=== PATIENT | female | born 1950 | race Caucasian/White ===

== ENCOUNTER 2025-04-04 07:39 | Day surgery (SDC) | payer MEDICARE, SELFPAY ==
[2025-04-04] VITALS (14 sets, daily range): BP systolic 79–151; BP diastolic 48–140; PULSE 40–60; RESP 16–17; TEMP 36.3–36.9; O2SAT 93–97; BMI 23.4
[2025-04-04] MEDS: LACTATED RINGERS 1000 ML 1,000 ML 100 ML IV ×2 (08:05→11:42)
[2025-04-04] MEDS: SODIUM CHLORIDE 0.9 % (FLUSH) 10 ML SYRINGE IVF (08:18)
--- NOTE | 2025-04-04 10:01 | SUR.OPER ---
PATIENT QUESTIONS ANSWERED SATISFACTORILY PREOPERATIVELY.? PATIENT BROUGHT TO OR #2 PER CART.? Patient positioned supine on OR #2 bed.? The perioperative?team supported arms bilaterally on arm boards.? Final approval of positioning by surgeon.? CONTINUOUS IRRIGATION OF THE RIGHT KNEE DURING THE PROCEDURE WITH NACL.
[2025-04-04] MEDS: BUPIVACAINE 0.25% 30 ML INJECTION (11:21)
--- NOTE | 2025-04-04 11:37 | P.ANES_ITS ---
Anesthesia Charges Start Date/Time Anesthesia Start Date: 04/04/25 Anesthesia Start Time: 10:32 Stop Date/Time Anesthesia Stop Date: 04/04/25 Anesthesia Stop Time: 11:35 Summary Extremes of Age - Over 70 or under 1: SENIOR SOLUTIONS WORKFLOW CONSULTANT Coding CPT Codes CPT Codes: ANESTH KNEE JOINT SURGERY - 84386 ([id number]) QK - HEALTH CARE LEGAL ASSISTANT 2-4 CNCRNT ANES PROC, P2 - PATIENT W/MILD SYST DISEASE Additional Codes: Summary - Extremes of Age - Over 70 or under 1: SENIOR SOLUTIONS WORKFLOW CONSULTANT ([id number])
--- NOTE | 2025-04-04 11:37 | W.ANESCHARGE ---
Anesthesia Charges Start Date/Time Anesthesia Start Date: 04/04/25 Anesthesia Start Time: 10:32 Stop Date/Time Anesthesia Stop Date: 04/04/25 Anesthesia Stop Time: 11:35 Summary Extremes of Age - Over 70 or under 1: ORDER FULFILLMENT SPECIALIST Coding CPT Codes CPT Codes: ANESTH KNEE JOINT SURGERY - 78765 ([id number]) QK - POLICY CANCELLATION CLERK 2-4 CNCRNT ANES PROC, P2 - PATIENT W/MILD SYST DISEASE Additional Codes: Summary - Extremes of Age - Over 70 or under 1: ORDER FULFILLMENT SPECIALIST ([id number])
--- NOTE | 2025-04-04 11:40 | P.ORPRC_ITS ---
Procedure Note Date of procedure: 04/04/25 Procedure: PREOPERATIVE DIAGNOSIS: Right knee medial and lateral meniscus tear POSTOPERATIVE DIAGNOSIS: Right knee medial and lateral meniscus tear NAME OF OPERATION: Right knee arthroscopic partial partial lateral meniscectomy SURGEON: Jonny Cagle MD INSTRUCTOR BUS TROLLEY AND TAXI: Rica Dietrich PA-C ANESTHESIA: Spinal ESTIMATED BLOOD LOSS: 0 mL COMPLICATIONS: None SPECIMENS: None DRAINS: None PREOPERATIVE ANTIBIOTICS: Ancef 1 gram INDICATIONS: The patient is a 74-year-old with a history of right knee pain. MRI scan is consistent with a medial and lateral meniscus tear. Despite appropriate nonoperative management, including activity modification, antiinflammatories, ouhx-aol-xbzacry pain medication, bracing, physical therapy, and injections they continue to have pain and disability. Operative intervention was offered. The risks, benefits and expected outcomes were discussed in detail. These included but were not limited to: Infection, bleeding, injury to blood vessel or nerve, venous thromboembolism. All questions were answered to their satisfaction. PROCEDURE: Spinal anesthesia was administered. The patient was placed supine on the operating room table. The right lower extremity was prepped and draped in the usual sterile fashion. The limb was exsanguinated with the Farhan bandage. The pneumatic tourniquet was inflated to 300 mmHg. A standard anterolateral portal was established. The arthroscope was introduced. The working portal was established anteromedially. Diagnostic arthroscopy was performed with findings as follows: The suprapatellar pouch is normal. Articular surface on the patella shows diffuse grade 2/3 change. Articular surface on the trochlea is normal. The medial gutter is normal. The medial compartment shows diffuse grade 2/3 change on the medial femoral condyle, grade 2 change on the medial tibial plateau. The medial meniscus shows age-appropriate degenerative fraying of the leading edge of the midbody and posterior horn. The notch shows the ACL to be intact. The lateral compartment shows a large area of grade 3/4 change on the central weight-bearing portion of the lateral femoral condyle, grade 2 change on the lateral tibial plateau. The lateral meniscus shows a complex degenerative tear of the posterior horn, into the midbody. This consists of undersurface horizontal cleavage tearing and some radial tearing at the junction of the midbody and anterior horn. The lateral gutter is normal. The leading edge of the midbody and posterior horn of the medial meniscus was debrided with the shaver. The posterior horn and midbody, into the anterior horn of the lateral meniscus was debrided with the shaver through both portals, taken to a stable base. Unstable chondral flaps on the lateral femoral condyle were debrided with the shaver. Arthroscopic instruments were removed, the portal sites were Steri-Stripped closed, the knee was infiltrated with 30 mL of 0.25% Marcaine without epinephrine. A dry dressing was applied, the tourniquet was released. Sponge and needle counts were correct x 2. The patient tolerated the procedure well. There were no apparent complications. They were carefully transferred to the hospital bed and taken to the post anesthesia care unit in satisfactory condition. PLAN: The patient will be discharged to home. They may weightbear as tolerates. Range of motion will be unrestricted. They will follow up in the o ffice next week for a wound check.
--- NOTE | 2025-04-04 12:17 | W.ANESCHARGE ---
Anesthesia Charges Start Date/Time Anesthesia Start Date: 04/04/25 Anesthesia Start Time: 10:32 Stop Date/Time Anesthesia Stop Date: 04/04/25 Anesthesia Stop Time: 11:35 Summary Extremes of Age - Over 70 or under 1: MDA Coding CPT Codes CPT Codes: ANESTH KNEE JOINT SURGERY - 89859 ([id number]) QK - NUMERICAL CONTROL NESTING OPERATOR 2-4 CNCRNT ANES PROC, QX - DELIVERY ROOM CLERK SVC W/ MD MED DIRECTION, P2 - PATIENT W/MILD SYST DISEASE Additional Codes: Summary - Extremes of Age - Over 70 or under 1: MDA ([id number])
== END 2025-04-04 13:20 | disposition home or self-care (01) ==
LOC: OR 07:40
PROVIDERS: PCP Physician Assistant Medical; Visit Provider Orthopaedic Surgery
PROC: (CPT 29882; principal; 2025-04-04 09:45)
DX: M23.251 Derangement of posterior horn of lateral meniscus due to old tear or injury, right knee (principal); M23.221 Derangement of posterior horn of medial meniscus due to old tear or injury, right knee
CPT/HCPCS: 29880; 01400; 99100; J0665; J0690; J1100; J2250; J2371; J2405; J2704; J3010; J7120

== ENCOUNTER 2025-04-08 11:27 | Emergency (ER) | payer MEDICARE, SELFPAY ==
--- OUTSIDE RECORDS SUMMARY | 2022-02-19 05:26 | XMS_ITS | Continuity of Care Document ---
Author Organization [facility] Address [address] [address] [place] [address] Phone Care Team Providers Care Electric Motor Repairman Name Role Phone Castro Peña MD, Loy Unavailable Unavailabl e Medications Medication Instructions Dosage Effective Dates (start - stop) Status Comments MiralaxBisacodylMagCit Colon Prep Use as directed - Active Advance Directives Directive Yes / No Effective Date File Name No Information Encounters Encounter Description Practice Location Reason(s) For Visit Diagnoses Date Provider Providers Copied on Encounter [facility], [address] [address], [place], [place], [id number], tel:[phone] [facility] No Information Castro Granado. [address] [place] [address], [id number], [place]. tel:[phone] [facility], [address] [address], [place], [place], [id number], tel:[phone] [facility] No Information Link MD Ramirez. [address] [place] [address], [id number], [place]. tel:[phone] Referring Provider: Kim GRACE, [address] [place] [address], [id number]. tel:[phone] Family History Family Member Type Diagnosis Age At Onset No Information Payers Payer name Insurance type Covered democrat ID Authoriza tion(s) No Information Social History Type Description Quantity Date Captured Comments Sex Female Smoking Status No Information Chief Complaint And Reason For Visit No Information Reason For Referral Reason For Referral No Information History Of Present Illness Encounter Date Complaint History Of Prese nt Illness No Information Functional Status Date Functional Assessmen t No Information Instructions Date Instruction Additional Infor mation No Information Assessments Type Assessment Date No Information Patient Care Teams Name Effective Dates (start - stop) Status Members No Information
--- OUTSIDE RECORDS SUMMARY | 2022-02-19 05:26 | XMS_ITS | Continuity of Care Document ---
Author Organization [facility] Address [address] [address] [place] [address] Phone Care Team Providers Care Gaming Director Name Role Phone Castro Peña MD, Loy Unavailable Unavailabl e Medications Medication Instructions Dosage Effective Dates (start - stop) Status Comments MiralaxBisacodylMagCit Colon Prep Use as directed - Active Advance Directives Directive Yes / No Effective Date File Name No Information Encounters Encounter Description Practice Location Reason(s) For Visit Diagnoses Date Provider Providers Copied on Encounter [facility], [address] [address], [place], [place], [id number], tel:[phone] [facility] No Information Castro Granado. [address] [place] [address], [id number], [place]. tel:[phone] [facility], [address] [address], [place], [place], [id number], tel:[phone] [facility] No Information Link MD Ramirez. [address] [place] [address], [id number], [place]. tel:[phone] Referring Provider: Kim GRACE, [address] [place] [address], [address]. tel:[phone] Family History Family Member Type Diagnosis Age At Onset No Information Payers Payer name Insurance type Covered constitution party ID Authoriza tion(s) No Information Social History [...]
[2025-04-08] VITALS (16 sets, daily range): BP systolic 146–183; BP diastolic 69–111; PULSE 46–68; RESP 16; TEMP 36.3; O2SAT 94–99; BMI 22.8
--- OUTSIDE RECORDS SUMMARY | 2025-04-08 11:29 | XMS_ITS | Clinical Summary ---
Author Organization [facility] Address [address] [place] [address] Care Team Providers Care Supervisor Fruit Grading Name Role Phone Kim Zhao Primary Care Provider Allergies Active Allergy Reactions Criticality Noted Date Comments Celecoxib Diarrhea,Other - Describe In Comment Field 07/06/2023 heartburn Vancomycin Itching 01/08/2013 Severe itching and redness Medications lisinopriL (PRINIVIL; ZESTRIL) 10 mg tabletIndications: Hypertension Take 1 Tablet (10 mg) by mouth once daily. 90 Tablet 3 4 Active simvastatin (ZOCOR) 40 mg tabletIndications: Hyperlipidemia, unspecified hyperlipidemia type Take 1 Tablet (40 mg) by mouth once daily in the evening. 90 Tablet 3 4 Active famotidine (PEPCID) 20 mg tabletIndications: Gastroesophageal reflux disease, unspecified whether esophagitis present Take 1 Tablet (20 mg) by mouth two times daily. 180 Tablet 3 4 Active cholecalciferol (VITAMIN D) 2,000 unit capsule Take 1 capsule by mouth once weekly. 0 1 03/20/20 25 Discontin ued(*Jayshree ent states no longer taking) Active Problems Problem Noted Date Diagnosed Date Calculus of gallbladder with acute on chronic cholecystitis without obstruction 05/23/2017 Varicose veins of lower extr emities with other complications 11/27/2013 Overview (03/04/2014): 12/2013 Venous insufficiency US - The RIGHT great saphenous vein is locally incompetent in the proximal and mid thigh. Saphenofemoral junction normal. The great saphenous vein measures 3-5 mm in the thigh, 2 mm in the calf. The RIGHT small saphenous vein is normal the small saphenous vein measures 3 mm. The LEFT great saphenous vein is probably locally incompetent in the mid thigh with poor quality or indeterminate Doppler waveform.. The great saphenous vein measures 3-5 mm in the thigh 9 mm saphenofemoral junction and 2-3 mm in the calf. The LEFT small saphenous vein is incompetent then normal caliber but with wall thickening suggesting a prior phlebitis. The small saphenous vein measures 3 mm. No incompetent perforating veins seen. No abnormal accessory veins. Pelvic abscess 06/14/2011 Uterine prolapse without mention of vaginal wall prolapse 05/19/2011 Cystocele, midline 05/19/2011 Screening mammogram 04/02/2009 Overview (04/02/2009): 02/12/08 Negative Smoker 04/02/2009 Hypertension 04/02/2009 Osteoarthritis of finger(s) 04/02/2009 Hyperlipidemia Pap smear Overview (04/02/2009): 12/13 Normal Resolved Problems Problem Noted Date Diagnosed Date Resolved Date Septic embolism 06/14/2011 06/09/2021 Encounters Date Type Department Care Team Description 03/20/2025 3:00 PM CDT Office Visit [facility] [address] [place] [address] Kim Zhao PA Preoperative Exam (R knee) 03/20/2025 Travel 03/06/2025 11:50 AM CDT Ancillary Procedure [facility] [address] [facility] [address] [place] [address] 03/06/2025 11:20 AM CDT Office Visit [facility] [address] [facility] [address] [place] [address] Reed Paris PA Knee Pain/problem (right) 03/06/2025 Travel from Last 3 Months Immunizations Immunization Administration Dates Next Due COVID-19 VACCINE COMIRNATY ( [employer]-Musistic 30MCG/0.3ML) 12YO+ PFS 04/08/2024 Pneumococcal Poly,23-Valent (Pneumovax) 11/26/19 18 Pneumococcal conj 13-Valent (Prevnar 13) 017 RSV, Recombinant ADJ Reconst ituted (Arexvy 120MCG/0.5mL) 04/22/2023 Td (Age >=7 Years) 01/19/2022,04/19/2000 Tdap 04/08/2010 Zoster (Shingrix-RZV, recombinant) 06/10/2022, Zoster (Zostavax-ZVL, live) 11/28/2013 Family History Medical History Relation Name Comments Diabetes Maternal Grandmother Other Mother demnetia Cancer-breast Other Mat. Grandmother's Siste Cancer-colon Paternal Grandfather Other Sister 3 COPD Cancer-ovarian No Family History Relation Name Status Comments Brother Alive Father (Age 81) alcoholism Maternal Grandmother Mother old age Other Mat. Grandmother's Siste Alive Paternal Grandfather Sister 1 esophageal canc er Sister 2 Alive Sister 3 Alive Social History Tobacco Use Types Packs/Day Years Used Date Smoking Tobacco: Every Day Cigarettes 1.5 50 Smokeless Tobacco: Never Tobacco Cessation:Ready to Q uit: No; Counseling Given: Yes Alcohol Use Standard Drinks/Week Comments No 0 (1 standard drink = 0.6 oz pur e alcohol) PHQ-2 Answer Date Recorded PHQ-2 TOTAL SCORE 0 06/18/2024 Social Connections Answer Date Recorded Do you often feel lonely or isolated from those around you? 0 06/13/2024 Financial Resource Strain Answer Date R ecorded Difficulty of Paying Living Expenses 3 05/03/2024 Difficulty of Paying Living Expenses Not on file 05/03/2024 Food Insecurity Answer Date Recorded Do you worry your food will run out before you are able to buy more? 1 06/13/2024 Transportation Needs Answer Date Record ed Does lack of transportation keep you from medica l appointments? 1 06/13/2024 Does lack of transportation keep you from work, meetings or getting things that you need? 1 06/13/2024 Housing Stability Answer Date Recorded What is your housing situation today? 1 06/13/2024 Utilities Answer Date Recorded Do you have trouble paying f or utilities (for example, heat, electricity, water, phone)? 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 Not on file Not on file Obstetrics History Para Term AB IAB SAB Ectopic Multiple Livin g Live Births 3 3 3 0 0 0 0 0 0 3 3 Date Outcome GA Total Labor Labor/2nd/3rd Weight Sex Type Anes PTL Tammi A1 A5 Name Clin Term Vag Living Term Vag Living Term Vag Living Last Filed Vital Signs Vital Sign Reading Time Taken Comments Blood Pressure 150/70 03/20/2025 3:22 PM CDT Pulse 66 03/20/2025 3:00 PM CDT Temperature 37.1 C (98.7 F) 03/06/2025 11:25 AM CDT Respiratory Rate 16 03/06/2025 11:25 AM CDT Oxygen Saturation 98% 03/06/2025 11:25 AM CDT Inhaled Oxygen Concentration - - Weight 62.1 kg (137 lb) 03/20/2025 3:00 PM CDT Height 165 cm (5' 4.96) 03/20/2025 3:00 PM CDT Body Mass Index 22.83 03/20/2025 3:00 PM CDT Plan of Treatment Upcoming Encounters Date Type Department Care Team (Late st Contact Info) Description 06/21/2025 9:10 AM PROCUREMENT ASSISTANT Office Visit [facility] [address] [place] [address] Kim Zhao PA [address] [place] [address] 06/21/2025 11:00 AM PROCUREMENT ASSISTANT Ancillary Procedure [facility] [address] [place] [address] Health Maintenance Due Date Last Done Comments Low Dose CT (for lung CA) age 50-80 06/12/2012 06/12/2011 Fecal testing non-DNA (FIT,FOBT,iFOBT) for age 45-75 06/16/2024 06/16/2023, 01/22/2022, 04/18/2017, Additional history exists Influenza Vaccine (#1) 2025 Mammogram for age 45-75 06/18/2025 06/18/20 24, 06/15/2023, 06/15/2022, Additional history exists Depression screening for age 12+ 06/19/2025 06/19/2024, 06/18/2024, 06/15/2023, Additional history exists Medicare Wellness for age 65+ 06/19/2025 06/18/2024, 06/15/2023, 06/15/2022, Additional history exists BMI (ht and wt on same day) for age 18+ 03/20/2026 03/20/2025, 06/18/2024, 06/15/2023, Additional history exists Lipids for age 45-75 06/18/2029 06/18/2024, 06/15/2023, 06/15/2022, Additional history exists Tetanus booster 01/20/2032 01/19/2022, 09/0 08/2009, 04/19/2000 Hepatitis C screening for age 18-79 Completed 11/28/2013 DEXA/DXA scan for age 65+ Completed 08/26/2016 Pneumococcal series for age 50+ Completed 11/25/2017, 08/20/2016 Zoster (shingles) series for age 50+ Completed 06/10/2022, 04/09/2022, 11/28/2013 RSV vaccine for adults or Completed 04/22/2023 COVID-19 vaccine series Completed 10/25/19, 04/08/2024, 05/23/2023, Additional history exists Hepatitis B series for 19+ Aged Out N o longer eligible based on patient's age to complete this topic Procedures Procedure Name Priority Date/Time Associated Diagnosis Comments POTASSIUM Routine 03/20/2025 3:29 PM CDT Hypertension XR KNEE WB 2 VIEWS BILATERAL AND 1 VIEW RIGHT STAT 03/06/2025 11:57 AM CDT Acute pain of right knee LIPID PANEL W REFLEX MEASURED LDL Routine 06/18/2024 10:23 AM PROCUREMENT ASSISTANT Screening cholesterol level XR MAMMO BRIELLE BILAT SCREEN Routine 06/18/2024 9:10 AM PROCUREMENT ASSISTANT Visit for screening mammogram OCCULT BLOOD IFOBT STOOL Routine 06/16/2023 3:29 PM PROCUREMENT ASSISTANT Screening for colon cancer XR DXA BONE DENSITY 2 SITES AXIAL Routine 08/26/2016 11:20 AM PROCUREMENT ASSISTANT Asymptomatic menopausal state Osteopenia ANTI HCV Routine 11/28/2013 2:06 PM CDT Need for hepatitis C screening test CT CHEST WO STAT 06/12/2011 10:19 PM CDT from Last 3 Months or Most Recently Relevant to Health Maintenance Results * POTASSIUM (03/20/2025 3:29 PM CDT) POTASSIUM 3.9 3.5 - 5.3 mmol/L [facility] Blood BLOOD SPECIMEN / Unknown 03/20/2025 3:29 PM CDT 03/20/2025 3:29 PM CDT Kim GRACE CHEMISTRY Final R esult [employer] [facility] [address] [place] [address], [facility] [address] [place] [address] * XR KNEE WB 2 VIEWS BILATERAL AND 1 VIEW RIGHT (03/06/2025 11:57 AM CDT) Anatomical Region Laterality Modality KNEES, KNEE R Digital Radiogra phy 03/06/2025 12:1 4 PM CDT Narrative 03/06/2025 12:14 PM CDT For Patients: As a result of the Century Cures Act, medical imaging exams and procedure reports are released immediately into your electronic medical record. You may view this report before your referring provider. If you have questions, please contact your health care provider. Indication: Acute pain of right knee Technique: Three views of the right knee and two views of the left knee Comparison: None Findings/Impression: No acute fracture or malalignment. Questionable trace right suprapatellar knee joint effusion. Mild tricompartmental osteoarthritic degenerative changes bilaterally. No suspicious osseous lesions. Patellar enthesophytes. Vascular calcifications. Dictated by Timo Chaudhary MD @ 03/06/2025 12:14:02 PM (Electronically Signed) Procedure Note Timo Chaudhary MD - 03/06/2025 For Patients: As a result of the Cures Act, medical imagingexams and procedure reports are released immediately into your electronicmedical record. You may view this report before your referring provider.If you have questions, please contact your health care provider. Indication: Acute pain of right knee Technique: Three views of the right knee and two views of the left knee Comparison: None Findings/Impression: No acute fracture or malalignment. Questionable trace right suprapatellarknee joint effusion. Mild tricompartmental osteoarthritic degenerative changes bilaterally. Nosuspicious osseous lesions. Patellar enthesophytes. Vascular calcifications. Dictated by Timo Chaudhary MD @ 03/06/2025 12:14:02 PM (Electronically Signed) us Reed [facility] Final Resul t * (ABNORMAL) LIPID PANEL W REFLEX MEASURED LDL (06/18/2024 10:23 AM PROCUREMENT ASSISTANT) CHOLESTEROL, TOTAL 154 <200 mg/dL [facility] HDL CHOLESTEROL 45(L) > OR = 50 mg/dL [facility] TRIGLYCERIDES 128 <150 mg/dL [facility] LDL-CHOLESTEROL 87 mg/dL (calc) [facility] Comment: Reference range: <100 Desirable range <100 mg/dL for primary prevention; <70 mg/dL for patients with CHD or diabetic patients with > or = 2 CHD risk factors. LDL-C is now calculated using the Farhan-Remy calculation, which is a validated novel method providing better accuracy than the Friedewald equation in the estimation of LDL-C. Farhan SS et al. PARAG. 2013;310(19): 2280-8867 (http://education.firstSTREET [employer]omers [employer]/faq/QNM638) CHOL/HDLC RATIO 3.4 <5.0 (calc) [facility] NON HDL CHOLESTEROL 109 <130 mg/dL (calc) [facility] Comment: For patients with diabetes plus 1 major ASCVD risk factor, treating to a non-HDL-C goal of <100 mg/dL (LDL-C of <70 mg/dL) is considered a therapeutic option. Blood BLOOD SPECIMEN / Unknown 06/18/2024 10:23 AM PROCUREMENT ASSISTANT 06/18/2024 10:23 AM PROCUREMENT ASSISTANT Narrative [facility] - 06/19/2024 3:55 AM PROCUREMENT ASSISTANT COLLECTION KIT GIVEN TO PATIENT. PATIENT ADVISED TO RETURN. Kim GRACE CHEMISTRY Final R esult [employer] [facility] [address] [place] [address], [employer] [address] * XR MAMMO BRIELLE BILAT SCREEN (06/18/2024 9:10 AM PROCUREMENT ASSISTANT) Anatomical Region Laterality Modality BREASTS, Breast Left, Breast Right Bilateral Mammography Impressions 06/18/2024 2:12 PM PROCUREMENT ASSISTANT There is no radiographic evidence for malignancy. Recommend annual mammograms. MAMMOGRAM ASSESSMENT: ACR 1 Negative PATIENTS: You will also receive a letter with your examination results in an easy to read format. If you have questions about your results, please contact your referring provider. Narrative 06/18/2024 2:12 PM PROCUREMENT ASSISTANT For Patients: As a result of the 21st Century Cures Act, medical imaging exams and procedure reports are released immediately into your electronic medical record. You may view this report before your referring provider. If you have questions, please contact your health care provider. XR MAMMO BRIELLE BILAT SCREEN [[id number]] CLINICAL HISTORY: This is an asymptomatic 73 y.o. patient. INDICATION FOR EXAM: Mammogram Screening. TECHNIQUE: CC & MLO views were obtained. This study was evaluated with the assistance of Computer-Aided Detection. Breast Tomosynthesis was used in interpretation. COMPARISON FILM: Yes 06/15/23 [facility] 06/15/22 [facility] FINDINGS: There are scattered areas of fibroglandular density. There are no dominant masses, suspicious micro calcifications or areas of architectural distortion. us Kim GRACE MAMMO Final R esult * OCCULT BLOOD IFOBT STOOL [[id number]] (06/16/2023 3:29 PM PROCUREMENT ASSISTANT) STOOL BLOOD ,IFOBT Negative Negative 06/20/2023 3:52 PM PROCUREMENT ASSISTANT [facility] Stool STOOL SPECIMEN / Unknown Non-Blood / Unknown 06/16/2023 3:29 PM PROCUREMENT ASSISTANT 06/20/2023 3:29 PM PROCUREMENT ASSISTANT [facility] Final R esult [facility] [address] [place] [address], * (ABNORMAL) XR DXA BONE DENSITY 2 SITES AXIAL (08/26/2016 11:20 AM PROCUREMENT ASSISTANT) Anatomical Region Laterality Modality Spine, HIPS, HIPL, HIPR Other Narrative 09/08/2016 7:47 AM PROCUREMENT ASSISTANT Please see scanned document for results of this study. us Kim GRACE DEXA Final R esult * ANTI HCV [[id number]] (11/28/2013 2:06 PM CDT) HEPATITIS C ANTIBODY Non-Reacti ve Non-Reacti ve 11/28/2013 11:49 PM CDT [facility] Blood specimen (specimen) BLOOD SPECIMEN / Unknown Venipuncture / Unknown 11/28/2013 2:06 PM CDT 11/28/2013 2:06 PM CDT Narrative [facility] - 11/28/2013 11:49 PM CDT Antibodies to HCV not detected; does not exclude the possibility of exposure to HCV. us Yoko Martinez MD SEND OUTS Final Result [facility] [address] [place] [address], [place] * CT Chest without Contrast (06/12/2011 10:19 PM CDT) Anatomical Region Laterality Modality CHEST, THORAX, HEART Computed To mography Narrative 06/13/2011 7:[address] CHEST WITHOUT CONTRAST 06/12/2011 HISTORY: Abnormal chest x-ray. COMPARISON: CT abdomen and pelvis dated 08/03/2011. TECHNIQUE: Thin axial images through the chest without contrast. FINDINGS: There is an 11 mm in diameter nodule along the posterior lateral pleura of the right lower lobe with localized ill-defined ground glass changes within the adjacent parenchyma. There is a questionable area of ill-defined opacity at the posterior aspect of the apical segment of the left lower lobe (image 55 of series 3). Lungs otherwise clear. MEDIASTINUM: Heart normal in size. There is mild calcification of the left anterior descending coronary artery. No pericardial effusion. No adenopathy. MUSCULOSKELETAL: Negative. Images through the upper abdomen demonstrate a left renal cyst. There is contrast excreted symmetrically through the kidneys. CONCLUSION: 1) 11 mm pleural based nodule posterior lateral aspect of the right lower lobe with surrounding ground glass changes. Subtle ground glass changes are noted along the pleura of the posterior aspect of the apical segment of the left lower lobe as well. Findings most suggestive of septic emboli, given the patient's pelvic infection. Follow-up to these nodules to resolution is recommended, however. 2) No evidence for mediastinal adenopathy. Results called to Dr. Villatoro at the time of this interpretation. Sean Sanders M.D. Neuroradiology, Body Imaging [facility] / Procedure Note Robert Morton MD - 06/13/2011 CT CHEST WITHOUT CONTRAST 06/12/2011 HISTORY: Abnormal chest x-ray. COMPARISON: CT abdomen and pelvis dated 08/03/2011. TECHNIQUE: Thin axial images through the chest without contrast. FINDINGS: There is an 11 mm in diameter nodule along the posteriorlateral pleura of the right lower lobe with localized ill-defined groundglass changes within the adjacent parenchyma. There is a questionablearea of ill-defined opacity at the posterior aspect of the apical segmentof the left lower lobe (image 55 of series 3). Lungs otherwise clear. MEDIASTINUM: Heart normal in size. There is mild calcification of theleft anterior descending coronary artery. No pericardial effusion. Noadenopathy. MUSCULOSKELETAL: Negative. Images through the upper abdomen demonstrate a left renal cyst. There iscontrast excreted symmetrically through the kidneys. CONCLUSION: 1) 11 mm pleural based nodule posterior lateral aspect of the right lowerlobe with surrounding ground glass changes. Subtle ground glass changesare noted along the pleura of the posterior aspect of the apical segmentof the left lower lobe as well. Findings most suggestive of septicemboli, given the patient's pelvic infection. Follow-up to these nodulesto resolution is recommended, however. 2) No evidence for mediastinal adenopathy. Results called to Dr. Villatoro at the time of this interpretation. Sean Sanders M.D. Neuroradiology, Body Imaging [facility] / Federica Villatoro MD CT Final Result from Last 3 Months or Most Recently Relevant to Health Maintenance Insurance [employer] [facility] Advance Directives Documents on File Type Date Recorded Patient Power System Dispatcher Expl anation Healthcare Directive 10/05/2022 023 * Full Code (Latest Code Status on File) Date Activated Date Inactivated Comments 01/08/2013 7:37 AM 01/08/2013 2:23 PM * Full Code Date Activated Date Inactivated Comments 06/30/2011 9:04 AM 07/01/2011 2:45 AM * Full Code Date Activated Date Inactivated Comments 06/13/2011 1:22 AM 06/15/2011 6:22 PM * Full Code Date Activated Date Inactivated Comments 05/19/2011 1:07 PM 05/21/2011 6:38 PM * Full Code Date Activated Date Inactivated Comments 05/19/2011 9:43 AM 05/19/2011 1:07 PM Care Teams Supervisor Fruit Grading Relationship Specialty Start Date End Date Kim Zhao PA [address] [place] [address] PCP - General Family Practice 07/30/15
--- NOTE | 2025-04-08 11:52 | CRLHL7_ITS ---
For Patients: As a result of the Century Cures Act, medical imaging exams and procedure reports are released immediately into your electronic medical record. You may view this report before your referring provider. If you have questions, please contact your health care provider. INDICATION: HEADACHE SINCE , KNEE SURG TUESDAY TECHNIQUE: CT of the head without contrast. Coronal and sagittal reformats. Bone and soft tissue algorithms. COMPARISON: No prior studies available for comparison at this institution. FINDINGS: No acute intracranial hemorrhage or extra-axial collection. No evidence of acute cortical infarction. A few small oval foci of hypoattenuation in the inferior basal ganglia may represent lacunar infarcts versus prominent perivascular spaces. Small chronic lacunar infarct in the right inferior cerebellum. Small chronic infarct in the right frontal operculum (series 2, image 27). Punctate hyperdensity in the left globus pallidus likely dystrophic calcification/mineralization. No mass effect or midline shift. Mild generalized parenchymal volume loss. Mild regions of decreased attenuation within the periventricular and subcortical white matter of both cerebral hemispheres most likely reflect chronic microvascular ischemic disease and age related change in this patient. Vascular calcifications within the carotid siphons. Orbital contents are normal. No calvarial fractures. No lytic or sclerotic osseous lesions within the calvarium or skull base. Scalp and other imaged soft tissue structures are normal. Mastoid air cells are clear. IMPRESSION: 1. No evidence of acute intracranial abnormalities. 2. A few small oval foci of hypoattenuation in the inferior basal ganglia may represent lacunar infarcts versus prominent perivascular spaces. Small chronic lacunar infarct in the right inferior cerebellum. Small chronic infarct in the right frontal operculum. 3. Mild parenchymal volume loss and chronic small vessel ischemic changes. Please note that all CT scans at this facility use dose modulation, iterative reconstruction, and/or weight-based dosing when appropriate to reduce radiation dose to as low as reasonably achievable. Dictated by Ganesh Whelan MD @ 04/08/2025 12:34:51 PM (Electronically Signed)
--- NOTE | 2025-04-08 11:53 | ED.GENADULT ---
HPI - General Adult General Chief complaint: Headache/Migraine Stated complaint: headache after surgery on Time Seen by Provider: 04/08/25 11:35 History of Present Illness HPI narrative: Patient is a 74-year-old woman who 5 days ago had a spinal surgery for repair of medial meniscal tear. She has had diffuse headache since that time. Headache is generalized extends the posterior occiput. She has had no photophobia but has had some nausea without vomiting. Pain is 8/10 and unremitting. Patient does not suffer from chronic headaches. She has had no fevers no chills no night sweats. No difficulties postoperatively otherwise. Related Data Home Medications ?Medication ?Instructions ?Recorded ?Confirmed lisinopril 10 mg tablet 10 mg PO DAILY 03/11/25 04/08/25 simvastatin 40 mg tablet 40 mg PO QPM 03/11/25 04/08/25 famotidine 20 mg tablet 20 mg PO BID 04/08/25 04/08/25 Previous Rx's ?Medication ?Instructions ?Recorded oxycodone 5 mg tablet 5 mg PO Q4H PRN pain #5 tabs 04/04/25 Allergies Allergy/AdvReac Type Severity Reaction Status Date / Time celecoxib (From Celebrex) Allergy Diarrhea Verified 04/08/25 11:52 vancomycin Allergy itching Verified 04/08/25 11:52 Review of Systems Status of ROS: Reports: 10 or more systems reviewed and unremarkable except as noted in History and below [facility] Medical History Stress due to family tension ?Z63.8 - Other specified problems related to primary support group (ICD-10) Primary osteoarthritis of first carpometacarpal joint of right hand ?M18.11 - Unilateral primary osteoarthritis of first carpometacarpal joint, right hand (ICD-10) Tenosynovitis of right wrist ?M65.931 - Unspecified synovitis and tenosynovitis, right forearm (ICD-10) Gastroesophageal reflux disease ?K21.9 - Gastro-esophageal reflux disease without esophagitis (ICD-10) Scleroderma ?M34.9 - Systemic sclerosis, unspecified (ICD-10) Other and unspecified ovarian cyst ?N83.209 - Unspecified ovarian cyst, unspecified side (ICD-10) Calculus of kidney ?N20.0 - Calculus of kidney (ICD-10) Smoker ?F17.200 - Nicotine dependence, unspecified, uncomplicated (ICD-10) Cystocele, midline ?N81.11 - Cystocele, midline (ICD-10) Uterine prolapse without mention of vaginal wall prolapse ?N81.4 - Uterovaginal prolapse, unspecified (ICD-10) Osteoarthritis of finger ?M19.049 - Primary osteoarthritis, unspecified hand (ICD-10) Calculus of gallbladder with acute on chronic cholecystitis without obstruction ?K80.12 - Calculus of gallbladder with acute and chronic cholecystitis without obstruction (ICD-10) Pelvic abscess Hyperlipidemia ?E78.5 - Hyperlipidemia, unspecified (ICD-10) Varicose veins of lower extremities with other complications ?I83.893 - Varicose veins of bilateral lower extremities with other complications (ICD-10) Hypertension ?I10 - Essential (primary) hypertension (ICD-10) Surgical History H/O ovarian cystectomy ?Z98.890 - Other specified postprocedural states (ICD-10) ?Z87.42 - Personal history of other diseases of the female genital tract (ICD-10) History of hysteroscopy ?Z98.890 - Other specified postprocedural states (ICD-10) H/O vaginal hysterectomy ?Z90.710 - Acquired absence of both cervix and uterus (ICD-10) Hx laparoscopic cholecystectomy ?Z90.49 - Acquired absence of other specified parts of digestive tract (ICD-10) Social History Smoking Status: Current every day smoker What tobacco products do you use: cigarettes How often do you have a drink containing alcohol: never AUDIT-C Alcohol total score: 0 Non-prescribed substance use: denies use Caffeine: Yes Exam Narrative: Exam Narrative: EXAM GENERAL: Patient appears comfortable and well. EYES: No scleral icterus. ENT: Tympanic membranes and oropharynx normal. THYROID: no thyroid nodules or thyromegaly. LYMPH: No supraclavicular or cervical lymphadenopathy. SKIN: Visible skin seen during exam normal or with benign process only. EXT: No dependent lower extremity pedal edema. HEART: Regular rate and rhythm with no murmurs, rubs, or gallops. LUNGS: Clear to auscultation bilaterally with no crackles or wheezes. ABD: Soft, non tender, non distended. PSYCH: Good eye contact, speech is not pressured. Const: Vital Signs, click to edit/add: Vital Signs - 24 hr 04/08/25 11:45 04/08/25 11:56 04/08/25 11:57 Temperature 97.4 F L Pulse Rate 59 L 59 L Pulse Rate [Pulse Oximeter] 68 Respiratory Rate 16 Blood Pressure 173/88 H Blood Pressure [Ri ght Upper Arm] 171/111 H Pulse Oximetry 99 96 94 Oxygen Delivery Me thod Room Air 04/08/25 12:00 04/08/25 12:31 04/08/25 12:32 Temperature Pulse Rate 50 L 56 L Pulse Rate [Pulse Oximeter] Respiratory Rate 16 Blood Pressure 183/79 H Blood Pressure [Ri ght Upper Arm] Pulse Oximetry 94 98 94 Oxygen Delivery Me thod 04/08/25 12:33 04/08/25 12:45 04/08/25 13:00 Temperature Pulse Rate 55 L 52 L 46 L Pulse Rate [Pulse Oximeter] Respiratory Rate Blood Pressure Blood Pressure [Ri ght Upper Arm] Pulse Oximetry 94 95 97 Oxygen Delivery Me thod 04/08/25 13:02 04/08/25 13:15 Temperature Pulse Rate 52 L 53 L Pulse Rate [Pulse Oximeter] Respiratory Rate Blood Pressure 154/83 H Blood Pressure [Ri ght Upper Arm] Pulse Oximetry 94 97 Oxygen Delivery Me thod Course Course ED Course: This bring up concern for spinal headache. I did do CT CBC comprehensive metabolic panel. He also place a IV and give a saline bolus Toradol Zofran and Benadryl. Will be in contact with anesthesia to see if they feel like a blood patch would be helpful. Vital Signs Vital signs: Initial Vital Signs Temperature 97.4 F L 04/08/25 11:45 Temperature Source Temporal Artery Scan 04/08/25 11:45 Pulse Rate 68 04/08/25 11:45 Pulse Rhythm Regular 04/08/25 11:45 Pulse Strength 3+ Normal 04/08/25 11:45 Respiratory Rate 16 04/08/25 11:45 Blood Pressure 171/111 H 04/08/25 11:45 Blood Pressure Mean 131 H 04/08/25 11:45 Blood Pressure Position Sitting 04/08/25 11:45 Pulse Oximetry 99 04/08/25 11:45 Oxygen Delivery Method Room Air 04/08/25 11:45 Vital Signs Temperature 97.4 F L 04/08/25 11:45 Pulse Rate 68 04/08/25 11:45 Respiratory Rate 16 04/08/25 11:45 Blood Pressure 171/111 H 04/08/25 11:45 Pulse Oximetry 99 04/08/25 11:45 Oxygen Delivery Method Room Air 04/08/25 11:45 Temperature 97.4 F L 04/08/25 11:45 Pulse Rate 53 L 04/08/25 13:15 Respiratory Rate 16 04/08/25 12:31 Blood Pressure 154/83 H 04/08/25 13:02 Pulse Oximetry 97 04/08/25 13:15 Oxygen Delivery Method Room Air 04/08/25 11:45 Medications Administered Medications: Discontinued Medications Generic Name Dose Route Start Last Admin Trade Name Freq PRN Reason Stop Dose Admin Diphenhydramine HCl 25 mg 04/08/25 11:52 04/08/25 12:33 Diphenhydramine 50 Mg/Ml Inj IVP 04/08/25 11:53 25 mg ONCE ONE Administration Sodium Chloride 1,000 mls @ 1,000 mls/hr 04/08/25 11:52 04/08/25 13:34 0.9 % Sodium Chloride 1000 Ml IV 04/08/25 12:51 Infused .Q1H SIOBHAN Infusion Ketorolac Tromethamine 30 mg 04/08/25 11:52 04/08/25 13:19 Ketorolac 30 Mg/Ml Inj IVP 04/08/25 11:53 Not Given ONCE ONE Ketorolac Tromethamine 15 mg 04/08/25 11:52 04/08/25 12:32 Ketorolac 30 Mg/Ml Inj IVP 04/08/25 11:53 15 mg ONCE ONE Administration Ondansetron HCl 4 mg 04/08/25 11:52 04/08/25 12:33 Ondansetron 2 Mg/Ml Inj IVP 04/08/25 11:53 4 mg ONCE ONE Administration Medical Decision Making MDM Narrative Medical decision making narrative: Patient is a 74-year-old woman who presents with headache approximately 5 days after receiving spinal injection. She received normal saline Toradol Zofran and Benadryl with modest improvement. Anesthesia did provide a blood patch she is feeling much better. She can be discharged home at this time with close outpatient follow-up. I did review incidental previous stroke findings on her CT with her and she will follow-up with her primary physician in the next 2 weeks. Lab Data Labs: Lab Results 04/08/25 Range/Units 12:02 WBC 8.89 (4.50-11.00) K/uL RBC 4.57 (4.00-5.20) m/uL Hgb 14.1 (12.0-16.0) gm/dL Hct 41.9 (33.0-51.0) % MCV 92 (80-100) fL MCH 31 (26-34) pg MCHC 34 (32-36) gm/dL RDW Coeff of Josiah 13.0 (11.5-15.5) % Plt Count 273 (140-440) K/uL Neut % (Auto) 69.8 (42.0-72.0) % Lymph % (Auto) 20.1 (20-44) % [place] % (Auto) 7.5 (0.0-11.0) % Eos % (Auto) 2.1 (0.0-7.0) % Baso % (Auto) 0.3 (0.0-3.0) % Neut # (Auto) 6.19 (1.7-7.0) K/uL Lymph # (Auto) 1.79 (0.90-2.90) K/uL [place] # (Auto) 0.70 (0.00-0.90) K/UL Eos # (Auto) 0.19 (0.00-0.50) K/uL Baso # (Auto) 0.03 (0.00-0.30) K/uL Abs Immat Gran (auto) 0.02 (0.00-0.30) K/uL Imm/Tot Granulo (auto) 0.2 % Sodium 138 (135-149) mmol/L Potassium 4.2 (3.6-5.1) mmol/L Chloride 104 (96-114) mmol/L Carbon Dioxide 27 (20-32) mmol/L Anion Gap 7 (7-15) mEq/L BUN 18 (7-30) mg/dL Creatinine 1.0 (0.5-1.5) mg/dL Estimated Creat Clear 44.41 Estimated GFR 59 ml/min Glucose 109 (60-115) mg/dL Calcium 9.4 (8.4-10.6) mg/dL Total Bilirubin 0.7 (0.1-1.5) mg/dL AST 21 (12-35) U/L ALT 14 (4-35) U/L Alkaline Phosphatase 108 (40-150) U/L Total Protein 7.7 (6.0-8.3) g/dL Albumin 4.2 (3.3-5.0) g/dL Discharge Plan Discharge Clinical Impression: Headache after spinal puncture Patient Disposition: Home, Self-Care Condition: Stable Instructions: Epidural Blood Patch (DC) Additional Instructions: Continue current care. Consider increasing caffeine. Follow-up with your doctor in the next 2 weeks. Activity Level: No Restrictions Discharge Diet: Regular Prescriptions: No Action simvastatin 40 mg tablet 40 mg PO QPM lisinopril 10 mg tablet 10 mg PO DAILY oxycodone 5 mg tablet 5 mg PO Q4H PRN (Reason: pain) Qty: 5 0RF famotidine 20 mg tablet 20 mg PO BID Follow Up/Referrals: Kim Zhao PA-C [Primary Care Provider, Family Practice] Stand Alone Forms: [employer] Info Instructions
[2025-04-08 12:09] LABS: Hematocrit 41.9 % (33.0-51.0); Hemoglobin* 14.1 gm/dL (12.0-16.0); Immature Granulocytes Abs Auto 0.02 K/uL (0.00-0.30); Immature Granulocytes Pct Auto 0.2 %; Lymphocytes Absolute Auto 1.79 K/uL (0.90-2.90); Mean Corpuscular HGB Conc 34 gm/dL (32-36); Mean Corpuscular Hemoglobin 31 pg (26-34); Mean Corpuscular Volume 92 fL (80-100); RDW Coefficient of Variation % 13.0 % (11.5-15.5); Red Blood Count 4.57 m/uL (4.00-5.20); White Blood Count* 8.89 K/uL (4.50-11.00)
[2025-04-08 12:10] LABS: Slide Review Reflex No
[2025-04-08 12:21] LABS: Albumin* 4.2 g/dL (3.3-5.0); Chloride* 104 mmol/L (96-114); Sodium* 138 mmol/L (135-149)
[2025-04-08 12:22] LABS: Potassium* 4.2 mmol/L (3.6-5.1)
[2025-04-08 12:24] LABS: Alanine Aminotransferase* 14 U/L (4-35); Alkaline Phosphatase* 108 U/L (40-150); Anion Gap 7 mEq/L (7-15); Aspartate Amino Transferase* 21 U/L (12-35); Bilirubin Total* 0.7 mg/dL (0.1-1.5); Blood Urea Nitrogen* 18 mg/dL (7-30); Calcium* 9.4 mg/dL (8.4-10.6); Carbon Dioxide* 27 mmol/L (20-32); Creatinine* 1.0 mg/dL (0.5-1.5); Est. Creatinine Clearance* 44.41; Estimated Glomerular Filt Rate 59 ml/min; Glucose* 109 mg/dL (60-115); Total Protein* 7.7 g/dL (6.0-8.3)
[2025-04-08] MEDS: ONDANSETRON 2 MG/ML inj 4 MG IVP (12:33)
--- NOTE | 2025-04-08 14:15 | PM.ANBPRC ---
[facility] Medical History Stress due to family tension ?Z63.8 - Other specified problems related to primary support group (ICD-10) Primary osteoarthritis of first carpometacarpal joint of right hand ?M18.11 - Unilateral primary osteoarthritis of first carpometacarpal joint, right hand (ICD-10) Tenosynovitis of right wrist ?M65.931 - Unspecified synovitis and tenosynovitis, right forearm (ICD-10) Gastroesophageal reflux disease ?K21.9 - Gastro-esophageal reflux disease without esophagitis (ICD-10) Scleroderma ?M34.9 - Systemic sclerosis, unspecified (ICD-10) Other and unspecified ovarian cyst ?N83.209 - Unspecified ovarian cyst, unspecified side (ICD-10) Calculus of kidney ?N20.0 - Calculus of kidney (ICD-10) Smoker ?F17.200 - Nicotine dependence, unspecified, uncomplicated (ICD-10) Cystocele, midline ?N81.11 - Cystocele, midline (ICD-10) Uterine prolapse without mention of vaginal wall prolapse ?N81.4 - Uterovaginal prolapse, unspecified (ICD-10) Osteoarthritis of finger ?M19.049 - Primary osteoarthritis, unspecified hand (ICD-10) Calculus of gallbladder with acute on chronic cholecystitis without obstruction ?K80.12 - Calculus of gallbladder with acute and chronic cholecystitis without obstruction (ICD-10) Pelvic abscess Hyperlipidemia ?E78.5 - Hyperlipidemia, unspecified (ICD-10) Varicose veins of lower extremities with other complications ?I83.893 - Varicose veins of bilateral lower extremities with other complications (ICD-10) Hypertension ?I10 - Essential (primary) hypertension (ICD-10) Surgical History H/O ovarian cystectomy ?Z98.890 - Other specified postprocedural states (ICD-10) ?Z87.42 - Personal history of other diseases of the female genital tract (ICD-10) History of hysteroscopy ?Z98.890 - Other specified postprocedural states (ICD-10) H/O vaginal hysterectomy ?Z90.710 - Acquired absence of both cervix and uterus (ICD-10) Hx laparoscopic cholecystectomy ?Z90.49 - Acquired absence of other specified parts of digestive tract (ICD-10) Social History Smoking Status: Current every day smoker What tobacco products do you use: cigarettes How often do you have a drink containing alcohol: never AUDIT-C Alcohol total score: 0 Non-prescribed substance use: denies use Caffeine: Yes Meds Home Medications and Allergies Home Medications ?Medication ?Instructions ?Recorded ?Confirmed ?Type lisinopril 10 mg tablet 10 mg PO DAILY 03/11/25 04/08/25 History simvastatin 40 mg tablet 40 mg PO QPM 03/11/25 04/08/25 History oxycodone 5 mg tablet 5 mg PO Q4H PRN pain #5 tabs 04/04/25 04/08/25 Rx famotidine 20 mg tablet 20 mg PO BID 04/08/25 04/08/25 History Allergies Allergy/AdvReac Type Severity Reaction Status Date / Time celecoxib (From Celebrex) Allergy Diarrhea Verified 04/08/25 11:52 vancomycin Allergy itching Verified 04/08/25 11:52 Results Labs Labs: Laboratory Results - last 24 hr 04/08/25 12:02 WBC 8.89 RBC 4.57 Hgb 14.1 Hct 41.9 MCV 92 MCH 31 MCHC 34 RDW Coeff of Josiah 13.0 Plt Count 273 Neut % (Auto) 69.8 Lymph % (Auto) 20.1 [place] % (Auto) 7.5 Eos % (Auto) 2.1 Baso % (Auto) 0.3 Neut # (Auto) 6.19 Lymph # (Auto) 1.79 [place] # (Auto) 0.70 Eos # (Auto) 0.19 Baso # (Auto) 0.03 Abs Immat Gran (auto) 0.02 Imm/Tot Granulo (auto) 0.2 Sodium 138 Potassium 4.2 Chloride 104 Carbon Dioxide 27 Anion Gap 7 BUN 18 Creatinine 1.0 Estimated Creat Clear 44.41 Estimated GFR 59 Glucose 109 Calcium 9.4 Total Bilirubin 0.7 AST 21 ALT 14 Alkaline Phosphatase 108 Total Protein 7.7 Albumin 4.2 Vital Signs Vital Signs: Last Vital Signs Temp 97.4 F L 04/08/25 11:45 Pulse 53 L 04/08/25 13:15 Resp 16 04/08/25 12:31 BP 154/83 H 04/08/25 13:02 Pulse Ox 97 04/08/25 13:15 O2 Del Method Room Air 04/08/25 11:45 Weight: 62.142 kg Height: 165.1 cm Anesthesia Procedures Epidural Blood Patch Patient Location: ED Start Time: 13:45 Stop Time: 14:20 Start Date: 04/08/25 Stop Date: 04/08/25 Reason for Blood Patch: spinal headache and CSF leak DENTAL MECHANIC: Ron Varela Preanesthetic Checklist: IV checked, risks and benefits discussed, surgical consent, monitors and equipment checked, pre-op evaluation, timeout performed and anesthesia consent Patient Symptoms: postural headache and photophobia Pain (1-10): 8 Pain duration: 1 day Pain Frequency: intermittent Quality of Pain: aching, pressure and throbbing Pain exacerbated by: cough/straining, standing and sitting Pain Made Worse: body movement Pain made better: medication and position change Diagnosis of PDPH: Yes Volume of Blood Injected (mL): 18 Patient Position: sitting Prep: Chloraprep Monitoring: cont pulse oximetry and BP monitoring Approach: midline Location: L4-5 Injection Technique: IVAN saline Injection Method: Touhy needle Needle Gauge Used: 17 Needle Length (cm): 10 cm Catheter Type: none Notes: Patient tolerated injection of autologous blood well.
== END 2025-04-08 14:43 | disposition home or self-care (01) ==
PROVIDERS: Emergency Provider Internal Medicine; PCP Physician Assistant Medical
DX: R51.9 Headache, unspecified (principal)
CPT/HCPCS: 36415; 62273; 70450; 80053; 85025; 94761; 96374; 96375; 99283; 99284; J1200; J1885; J2405; J7030

== ENCOUNTER 2025-04-17 12:38 | Outpatient (CLI) | payer MEDICARE, SELFPAY ==
--- NOTE | 2025-04-17 13:00 | CRLHL7_ITS ---
For Patients: As a result of the Century Cures Act, medical imaging exams and procedure reports are released immediately into your electronic medical record. You may view this report before your referring provider. If you have questions, please contact your health care provider. Indication: PAIN IN RIGHT CALF POST PROCEDURE Technique: Real-time longitudinal and transverse sonographic garcia-scale imaging with and without compression, as well as color, duplex, and spectral Doppler imaging before and after augmentation, was obtained of the deep system of the right lower extremity, including the common femoral, femoral, popliteal, posterior tibial, and peroneal veins. Comparison: None. Findings: Common femoral vein: No evidence of thrombus. Femoral vein: No evidence of thrombus. Popliteal vein: No evidence of thrombus. Calf veins: Patent. Popliteal fossa fluid collections measuring 2.3 x 2.7 x 1.4 centimeter and 3.4 x 1.1 x 1.3 centimeter. Impression: 1. No ultrasound evidence of deep venous thrombosis. 2. Popliteal fossa fluid collections measuring 2.3 x 2.7 x 1.4 centimeter and 3.4 x 1.1 x 1.3 centimeter may represent small postoperative seromas or evolving hematomas. Dictated by Jesus Martinez MD @ 04/17/2025 1:40:18 PM (Electronically Signed)
== END 2025-04-17 12:39 | disposition home or self-care (01) ==
PROVIDERS: PCP Physician Assistant Medical; Visit Provider Physician Assistant
DX: M79.604 Pain in right leg (principal); Z98.890 Other specified postprocedural states; Z87.828 Personal history of other (healed) physical injury and trauma
CPT/HCPCS: 93971